=== PATIENT | female | born 1950 | race American Indian/Alaskan Native ===

== ENCOUNTER 2016-11-21 12:38 | Emergency (ER) | payer MEDICARE, OTHER ==
--- NOTE | 2016-11-21 13:14 | Emergency Department Report ---
Entered by MARISOL OMER, acting as scribe for JEAN MARIE MORALES NP. Chief Complaint: Shoulder Injury Stated Complaint: LT SHOULDER PAIN/TINGLE IN FINGER Time Seen by Provider: 11/21/16 13:08 - HPI History of Present Illness: 66 y/o female present with right shoulder and right arm pain that started last night and radiates down towards her fingers. Sx include tingling in the right hand digits. Medication includes aleve and icing affected area with no relief. Pt denies any injury or trauma to the area. - ROS Review of Systems: + right shoulder and right arm pain +tingling - Exam Vital Signs: Vital Signs 11/21/16 13:00 Temperature 98 F Pulse Rate 53 L Respiratory 18 Rate Blood Pressure 140/69 O2 Sat by Pulse 99 Oximetry Physical Exam: PT looks well, non toxic PT holding R shoulder no focal weakness noted PT has hx of disc disease - reviewed MRI from 2013 MSE screening note: Focused history and physical exam performed. Due to findings the following was ordered: This documentation as recorded by the scribe,MARISOL OMER,accurately reflects the service I personally performed and the decisions made by ,JEAN MARIE MORALES , [employer].
[2016-11-21] MEDS ORDERED: DILAUDID IM ONE (15:01)
[2016-11-21] MEDS ORDERED: TORADOL IM ONE (15:01)
--- NOTE | 2016-11-21 15:01 | Emergency Department Report ---
ED General Adult HPI - General Chief complaint: Shoulder Injury Stated complaint: LT SHOULDER PAIN/TINGLE IN FINGER Time Seen by Provider: 11/21/16 13:08 Source: patient, RN notes reviewed, old records reviewed Mode of arrival: Ambulatory Limitations: No Limitations - History of Present Illness Initial comments: This is a 66-year-old female. She is previously unknown to me. She is right- hand dominant. She presents to the ER with right paracervical pain, right trapezius pain, and right-sided arm lancinating pain. This pain started within the past 36 hours. The pain is sharp and tingling and lightening-like in nature. It increases with palpation and increases with range of motion. There is no weakness. There is no midline neck pain. There is no chest pain. There is no shortness of breath. There is no bladder or bowel retention or incontinence. There is no saddle anesthesia. -: Gradual Location: neck, right, upper extremity Radiation: extremity Quality: burning, stabbing, aching Consistency: constant Improves with: rest Worsens with: movement Associated Symptoms: denies other symptoms - Related Data Home Medications Medication Instructions Recorded Confirmed Last Taken ALPRAZolam [Xanax TAB] 0.5 mg PO TID PRN 12/30/12 01/10/14 12/29/12 09:00 Atenolol [Tenormin] 50 mg PO DAILY 12/30/12 01/10/14 12/29/12 09:00 Doxazosin Mesylate [Cardura] 2 mg PO DAILY 12/30/12 01/10/14 12/29/12 09:00 Insulin Aspart [NovoLOG Flexpen] 30 unit SQ TID 12/30/12 01/10/14 12/29/12 21:00 Zolpidem [Ambien] 5 mg PO QHS PRN 12/30/12 01/10/14 12/29/12 21:00 Estradiol [Estrace] 2 mg PO DAILY 01/10/14 01/10/14 01/10/14 Trazodone HCl [traZODone] 50 mg PO QHS PRN 01/10/14 01/10/14 Unknown Previous Rx's Medication Instructions Recorded Last Taken Type Sertraline [Zoloft] 75 mg PO QDAY #90 tablet 01/01/13 Unknown Rx Atorvastatin Calcium [Lipitor] 20 mg PO QHS #30 01/13/14 12/29/12 09:00 Rx Furosemide [Lasix] 40 mg PO Q48H #30 01/13/14 Unknown Rx HYDROcodone/APAP 5-325 [[place] 1 each PO Q4H PRN #20 tablet 01/13/14 Unknown Rx 5-325 mg TAB] Insulin Glargine,Hum.rec.anlog 20 unit SQ QHS #3 01/13/14 12/29/12 21:00 Rx [Lantus Solostar] hydrALAZINE [Apresoline TAB] 10 mg PO Q8H PRN #30 tablet 01/13/14 Unknown Rx Carisoprodol [Soma] 250 mg PO TIDHS PRN #30 tablet 11/21/16 Unknown Rx Ibuprofen [Motrin] 600 mg PO Q8H PRN #30 tablet 11/21/16 Unknown Rx Allergies Allergy/AdvReac Type Severity Reaction Status Date / Time codeine Allergy Hives Verified 12/30/12 01:38 Penicillins Allergy Hives Verified 12/30/12 01:38 ED Review of Systems ROS: Stated complaint: LT SHOULDER PAIN/TINGLE IN FINGER Other details as noted in HPI Constitutional: denies: fever Eyes: denies: vision change ENT: denies: epistaxis Respiratory: denies: cough Cardiovascular: denies: chest pain Gastrointestinal: denies: abdominal pain Musculoskeletal: as per HPI, arthralgia, myalgia Skin: denies: lesions Neurological: paresthesias ED Past Medical Hx - Past Medical History Previous Medical History?: Yes Hx Hypertension: Yes Hx Heart Attack/AMI: Yes (04/25/1996) Hx Congestive Heart Failure: No Hx Diabetes: Yes Hx Renal Disease: Yes Hx Asthma: No Hx COPD: No Hx HIV: No Additional medical history: high cholest - Surgical History Past Surgical History?: Yes Hx Cholecystectomy: Yes Hx Breast Surgery: Yes (breast reduction) Additional Surgical History: hysterectomy, inguinal hernia repain, breas reduction, thoracotomy - Social History Smoking Status: Never Smoker Substance Use Type: Alcohol, Prescribed - Medications Home Medications: Home Medications Medication Instructions Recorded Confirmed Last Taken Type ALPRAZolam [Xanax TAB] 0.5 mg PO TID PRN 12/30/12 01/10/14 12/29/12 09:00 History Atenolol [Tenormin] 50 mg PO DAILY 12/30/12 01/10/14 12/29/12 09:00 History Doxazosin Mesylate [Cardura] 2 mg PO DAILY 12/30/12 01/10/14 12/29/12 09:00 History Insulin Aspart [NovoLOG Flexpen] 30 unit SQ TID 12/30/12 01/10/14 12/29/12 21: 00 History Zolpidem [Ambien] 5 mg PO QHS PRN 12/30/12 01/10/14 12/29/12 21:00 History Sertraline [Zoloft] 75 mg PO QDAY #90 tablet 01/01/13 01/10/14 Unknown Rx Estradiol [Estrace] 2 mg PO DAILY 01/10/14 01/10/14 01/10/14 History Trazodone HCl [traZODone] 50 mg PO QHS PRN 01/10/14 01/10/14 Unknown History Atorvastatin Calcium [Lipitor] 20 mg PO QHS #30 01/13/14 01/10/14 12/29/12 09: 00 Rx Furosemide [Lasix] 40 mg PO Q48H #30 01/13/14 01/10/14 Unknown Rx HYDROcodone/APAP 5-325 [[place] 1 each PO Q4H PRN #20 tablet 01/13/14 Unknown Rx 5-325 mg TAB] Insulin Glargine,Hum.rec.anlog 20 unit SQ QHS #3 01/13/14 01/10/14 12/29/12 21: 00 Rx [Lantus Solostar] hydrALAZINE [Apresoline TAB] 10 mg PO Q8H PRN #30 tablet 01/13/14 Unknown Rx Carisoprodol [Soma] 250 mg PO TIDHS PRN #30 tablet 11/21/16 Unknown Rx Ibuprofen [Motrin] 600 mg PO Q8H PRN #30 tablet 11/21/16 Unknown Rx ED Physical Exam - General Limitations: Physical Limitation General appearance: alert, in no apparent distress - Head Head exam: Present: atraumatic, normocephalic - Eye Eye exam: Present: normal appearance, EOMI. Absent: nystagmus - ENT ENT exam: Present: normal exam, normal orophraynx, mucous membranes moist, normal external ear exam - Neck Neck exam: Present: normal inspection, full ROM. Absent: tenderness, meningismus - Respiratory Respiratory exam: Present: normal lung sounds bilaterally. Absent: respiratory distress, wheezes, rales, rhonchi, stridor, chest wall tenderness - Cardiovascular Cardiovascular Exam: Present: normal rhythm, bradycardia, normal heart sounds. Absent: systolic murmur, diastolic murmur, rubs, gallop - GI/Abdominal GI/Abdominal exam: Present: soft, normal bowel sounds. Absent: distended, tenderness, guarding, rebound, rigid, pulsatile mass - Extremities Exam Extremities exam: Present: normal inspection, normal capillary refill, other ( sensation is intact to light touch in the bilateral deltoid, median, radial, ulnar distribution. There is 5 out of 5 hemmer automatic strength in the bilateral upper and lower extremities. Patient is able to circumduct the bilateral wrist, thumb opposition is intact, finger intrinsics are intact. Patient is able to passively range the left shoulder to 90 abduction, and she is able to hold against gravity. Also, when the right arm is fully extended towards the shoulder, patient is able to hold against gravity.). Absent: pedal edema, joint swelling, calf tenderness - Back Exam Back exam: Present: normal inspection, full ROM. Absent: tenderness, CVA tenderness (R), CVA tenderness (L), muscle spasm, paraspinal tenderness, vertebral tenderness, rash noted - Neurological Exam Neurological exam: Present: alert, oriented X3, normal gait, reflexes normal (2 + biceps, triceps, brachial radialis reflexes), other (Extraocular movements intact. Tongue midline. No facial droop. Facial sensation intact to light touch in the V1, V2, V3 distribution bilaterally. 5 and 5 strength in 4 extremities.. Sensation is intact to light touch in 4 extremities.). Absent: motor sensory deficit - Psychiatric Psychiatric exam: Present: anxious - Skin Skin exam: Present: warm, dry, intact, normal color. Absent: rash ED Course Vital Signs 11/21/16 11/21/16 13:00 17:42 Temperature 98 F 97.9 F Pulse Rate 53 L 65 Respiratory 18 20 Rate Blood Pressure 140/69 Blood Pressure 144/65 [Left] O2 Sat by Pulse 99 100 Oximetry ED Medical Decision Making - Lab Data Vital Signs 11/21/16 13:00 Temperature 98 F Pulse Rate 53 L Respiratory 18 Rate Blood Pressure 140/69 O2 Sat by Pulse 99 Oximetry - Radiology Data Radiology results: report reviewed, image reviewed MRI of the cervical spine from January 2014 demonstrates DJD, broad base central and right paracentral disc protrusion, DJD. No cord lesion. - Medical Decision Making Differential diagnosis: Acute on chronic cervical radiculopathy Assessment and plan: 66-year-old female with probable acute on chronic cervical radiculopathy. Strength, sensation, proprioception, reflexes intact. No clinical evidence of cellulitis. Hemodynamically stable. Patient needs to follow up with outpatient neurosurgery/pain. She will be given pain medication , and referred to outpatient follow-up. Return precautions are reviewed. Critical care attestation.: If time is entered above; I have spent that time in minutes in the direct care of this critically ill patient, excluding procedure time. ED Disposition Clinical Impression: Right arm pain Disposition: DC-01 TO HOME OR SELFCARE Is pt being admited?: No Does the pt Need Aspirin: No Condition: Stable Instructions: Cervical Radiculopathy (ED) Additional Instructions: Rest and avoid heavy lifting. Avoid strenuous physical activity. Take the pain medication as directed. If taking the Soma medication for pain, do not drive, consume alcohol, or make important decisions. This medication is sedating. Follow up with any of the listed spine/neurosurgery specialists within the next 2-3 days. Return to the ER right away with new pain, worsened pain, migration of pain, fevers, chills, confusion, weakness, inability to move the arm, bladder or bowel retention and incontinence. Prescriptions: Carisoprodol [Soma] 250 mg PO TIDHS PRN #30 tablet PRN Reason: Pain Ibuprofen [Motrin] 600 mg PO Q8H PRN #30 tablet PRN Reason: Pain Referrals: PRIMARY CARE, [Primary Care Provider] - 3-5 Days MANDEEP ESCOBEDO MD [Staff Physician] - 3-5 Days SMITH FREITAS MD [Staff Physician] - 3-5 Days
[2016-11-21 17:42] VITALS: BP 144/65
== END 2016-11-21 17:43 | disposition home or self-care (01) ==
LOC: ED 12:38
DX: M25.511 Pain in right shoulder (principal); I10 Essential (primary) hypertension; I25.2 Old myocardial infarction; E11.9 Type 2 diabetes mellitus without complications; E78.00 Pure hypercholesterolemia, unspecified; Z79.4 Long term (current) use of insulin; Z88.6 Allergy status to analgesic agent; Z88.0 Allergy status to penicillin
CPT/HCPCS: 93005; 93010; 96372; 99282; J1170; J1885